=== PATIENT | male | born 2005 | race African-American/Black ===

== ENCOUNTER 2025-06-17 11:25 | Inpatient (IN) | payer MEDICAID ==
[~2025-06-17] VITALS: Ht 170.2 cm; Wt 49.2 kg
[~2025-06-17 11:25] MED LIST: DIVA-112 PO; LITH300C3 PO; RISP4TAB94 PO
[2025-06-18] MEDS ORDERED: ZOLPIDEM TARTRATE 10 MG TABLET PO PRN (14:00)
[2025-06-18 17:54] VITALS: BP 135/84; PULSE 67; RESP 18; TEMP 99; O2SAT 99
[2025-06-18 22:38] VITALS: BP 138/82; PULSE 69; RESP 18; TEMP 98.8; O2SAT 98
[2025-06-19 08:54] VITALS: BP 140/83; PULSE 94; RESP 18; TEMP 97.5; O2SAT 99
[2025-06-19 12:05] LABS: CHOL/HDL RATIO 3.5 (4.2-7.3); LDL CHOL (CALC.) 108.0 mg/dL (0-130)
[2025-06-20] MEDS: LORazepam 2 MG/ML VIAL IM ONE (01:20)
[2025-06-20] MEDS: OLANZapine 5 MG RAPDIS TABLET PO PRN (16:49)
[2025-06-20 21:30] VITALS: BP 139/92; PULSE 106; RESP 18; TEMP 98.7; O2SAT 97
[2025-06-20 23:08] VITALS: BP 132/88; PULSE 100; RESP 18; O2SAT 100
[2025-06-21] MEDS: ZOLPIDEM TARTRATE 10 MG TABLET PO PRN (00:19)
[2025-06-21 08:20] VITALS: BP 128/101; PULSE 69; RESP 18; TEMP 98.1; O2SAT 100
[2025-06-21] MEDS ORDERED: GuaiFENesin/D-METHORPHAN [SUGAR-FREE] 200-20MG/10 ML SYRUP UDCUP PO PRN (21:15)
[2025-06-21] MEDS ORDERED: PROMETHAZINE HCL 25 MG TABLET PO PRN (21:15)
[2025-06-21] MEDS ORDERED: MELATONIN 5 MG TABLET PO PRN (21:15)
[2025-06-21] MEDS ORDERED: MAGNESIUM HYDROXIDE SUSPENSION 30 ML UDCUP PO PRN (21:15)
[2025-06-21] MEDS ORDERED: TUBERCULIN, PURIFIED PROTEIN DERIVATIVE 5 TU/0.1 ML SYRINGE ID ONE (21:15)
[2025-06-21] MEDS ORDERED: MAG HYDROX/ALUMINUM HYD/SIMETH ES 30 ML SUSPENSION UDCUP PO PRN (21:15)
[2025-06-21] MEDS ORDERED: LOPERAMIDE HCL 2 MG CAPSULE PO PRN (21:15)
[2025-06-21] MEDS ORDERED: ACETAMINOPHEN 325 MG TABLET PO PRN (21:15)
[2025-06-21] MEDS: OLANZapine 5 MG RAPDIS TABLET PO ONE (21:40)
[2025-06-21 22:42] VITALS: BP 142/103; PULSE 98; RESP 18; TEMP 98.4; O2SAT 97
[2025-06-22] MEDS: OLANZapine 5 MG RAPDIS TABLET PO PRN (04:02)
[2025-06-22 06:30] LABS: PLATELET COUNT (AUTO) 217 K/uL (150-450); RED BLOOD CELL COUNT(AUTO) 5.15 MIL/uL (4.50-5.90); RED CELL DISTRIBUTION WIDTH 12.9 % (11.5-14.5); WHITE BLOOD COUNT (AUTO) 6.0 K/uL (4.5-11.0)
[2025-06-22 07:26] LABS: ASPARTATE AMINOTRANSFERASE 36 U/L (15-37); CALCIUM, TOTAL 9.0 mg/dL (8.8-10.5); CREATININE 0.77 mg/dL (0.60-1.30); GLOMERULAR FILTR. RATE CALC > 60 mL/min (>60); GLUCOSE,RANDOM 89 mg/dL (70-110); SODIUM SERUM 136 mmol/L (136-145); TOTAL PROTEIN, SERUM 7.2 g/dL (6.4-8.2); UREA NITROGEN, BLOOD 14 mg/dL (7-18)
[2025-06-22 09:59] VITALS: BP 137/81; RESP 18; O2SAT 100
[2025-06-22] MEDS: NALTREXONE HCL 50 MG TABLET PO SCH (10:14)
[2025-06-22] MEDS: THIAMINE 100 MG TABLET PO SCH (10:14)
[2025-06-22] MEDS: FOLIC ACID 1 MG TABLET PO SCH (10:14)
[2025-06-22] MEDS: MULTIVITAMINS WITH MINERALS, THERAPEUTIC TABLET PO SCH (10:14)
[2025-06-22] MEDS: PALIPERIDONE PALMITATE 234 MG/1.5 ML SYRINGE IM ONE (10:16)
[2025-06-22] MEDS: DIVALPROEX SODIUM 500 MG ER TABLET PO SCH (16:08)
[2025-06-22 20:05] VITALS: BP 112/53; PULSE 100; RESP 16; TEMP 98.6; O2SAT 98
[2025-06-22] MEDS: OLANZapine 5 MG RAPDIS TABLET PO SCH (21:07)
[2025-06-23] MEDS: ZOLPIDEM TARTRATE 10 MG TABLET PO PRN (02:21)
[2025-06-23 08:24] VITALS: BP 137/80; PULSE 91; RESP 16; TEMP 98; O2SAT 99
[2025-06-23 16:11] LABS: APPEARANCE,URINE CLEAR (CLEAR); GLUCOSE, URINE (UA) NEGATIVE (NEGATIVE); LEUKOCYTE ESTERASE ,URINE NEGATIVE (NEGATIVE); NITRATE,URINE NEGATIVE (NEGATIVE); OCCULT BLOOD,URINE NEGATIVE (NEGATIVE); SPECIFIC GRAVITIY, URINE 1.008 (1.003-1.030)
[2025-06-23 16:16] LABS: PH,URINE DRUG SCREEN 7.0 (5.0-8.0)
[2025-06-23 16:18] LABS: ALCOHOL, URINE DRUG SCREEN NEGATIVE (NEGATIVE); AMPHET/METH SCREEN,URINE NEGATIVE (NEGATIVE); BARBITURATE SCREEN, URINE NEGATIVE (NEGATIVE); CANNABINOID SCREEN,URINE NEGATIVE (NEGATIVE); COCAINE SCREEN,URINE NEGATIVE (NEGATIVE); METHADONE SCREEN, URINE NEGATIVE (NEGATIVE)
[2025-06-23 20:04] VITALS: BP 133/83; PULSE 112; RESP 16; TEMP 98.4; O2SAT 98
[2025-06-24 11:36] VITALS: BP 122/78; PULSE 92; RESP 18; TEMP 98.2; O2SAT 100
[2025-06-24 20:17] VITALS: BP 114/64; PULSE 99; RESP 16; TEMP 98.1; O2SAT 100
[2025-06-24] MEDS: OLANZapine 10 MG RAPDIS TABLET PO SCH (22:22)
[2025-06-25] MEDS ORDERED: MELA5TAB40 PO (11:10)
[2025-06-25] MEDS ORDERED: DIVA-153 PO (11:10)
[2025-06-25] MEDS ORDERED: OLAN10TA26 PO (11:10)
[2025-06-25] MEDS ORDERED: NALT50TA33 PO (11:10)
[2025-06-25] MEDS ORDERED: PALI117D IM (11:10)
[2025-06-25 15:55] VITALS: BP 131/87; PULSE 115; RESP 16; TEMP 98; O2SAT 100
[2025-06-25 21:01] VITALS: BP 121/74; PULSE 100; RESP 16; TEMP 98.1; O2SAT 98
[2025-06-26] MEDS: PALIPERIDONE PALMITATE 156 MG/ML SYRINGE IM ONE (08:04)
[2025-06-26 08:38] VITALS: BP 138/81; PULSE 109; RESP 16; TEMP 97.8; O2SAT 100
== END 2025-06-26 16:52 | disposition home or self-care (01) | DRG 750 ==
LOC: UNDOADMIN 06-18 17:40 → 3EI 06-18 17:40 → 3EX 06-20 01:00 → 3EC 06-20 23:16
PROVIDERS: ADMIT Psychiatry & Neurology Psychiatry; ATTEND Psychiatry & Neurology Psychiatry
PROC: GZ56ZZZ Individual Psychotherapy, Supportive (ICD-10-PCS; 2025-06-21)
PROC: GZHZZZZ Group Psychotherapy (ICD-10-PCS; principal; 2025-06-26)
PROC: GZ51ZZZ Individual Psychotherapy, Behavioral (ICD-10-PCS; 2025-06-26)
DX: F25.0 Schizoaffective disorder, bipolar type (principal); F41.9 Anxiety disorder, unspecified; T43.595A Adverse effect of other antipsychotics and neuroleptics, initial encounter; Z60.8 Other problems related to social environment; Z55.9 Problems related to education and literacy, unspecified; Z56.0 Unemployment, unspecified; Z59.9 Problem related to housing and economic circumstances, unspecified; Z63.9 Problem related to primary support group, unspecified; Z65.3 Problems related to other legal circumstances; Y92.89 Other specified places as the place of occurrence of the external cause
CPT/HCPCS: 74019; 80053; 80061; 80164; 80307; 81003; 82140; 83036; 84439; 84443; 85025; 86592; J1200; J1630; J2060

== ENCOUNTER 2025-06-26 22:31 | Inpatient (IN) | payer MEDICAID ==
[~2025-06-26] VITALS: Ht 170.2 cm; Wt 50.8 kg
[2025-06-26 10:33] VITALS: BP 133/93; PULSE 110; RESP 17; TEMP 98.6; O2SAT 100
[~2025-06-26 22:31] MED LIST changes: +DIVA-153 PO; +MELA5TAB40 PO; +NALT50TA33 PO; +OLAN10TA26 PO; +PALI117D IM
[2025-06-27] MEDS ORDERED: MELATONIN 5 MG TABLET PO PRN (00:30)
[2025-06-27 10:33] VITALS: BP 129/88; PULSE 112; RESP 17; TEMP 98.6; O2SAT 100
[2025-06-27] MEDS: NALTREXONE HCL 50 MG TABLET PO SCH (10:52)
[2025-06-27] MEDS: DIVALPROEX SODIUM 500 MG ER TABLET PO SCH (10:52)
[2025-06-27 20:04] VITALS: BP 122/80; PULSE 116; RESP 18; TEMP 97.8; O2SAT 100
[2025-06-27] MEDS: ZOLPIDEM TARTRATE 10 MG TABLET PO PRN (20:38)
[2025-06-27] MEDS: OLANZapine 10 MG RAPDIS TABLET PO SCH (20:38)
[2025-06-28 08:25] VITALS: BP 128/86; RESP 16; TEMP 97; O2SAT 100
[2025-06-28 09:17] LABS: PLATELET COUNT (AUTO) 236 K/uL (150-450); RED BLOOD CELL COUNT(AUTO) 4.80 MIL/uL (4.50-5.90); RED CELL DISTRIBUTION WIDTH 13.2 % (11.5-14.5); WHITE BLOOD COUNT (AUTO) 5.2 K/uL (4.5-11.0)
[2025-06-28 09:43] LABS: ASPARTATE AMINOTRANSFERASE 12 U/L (15-37); CALCIUM, TOTAL 8.6 mg/dL (8.8-10.5); CHOL/HDL RATIO 3.7 (4.2-7.3); CREATININE 0.90 mg/dL (0.60-1.30); GLOMERULAR FILTR. RATE CALC > 60 mL/min (>60); GLUCOSE,RANDOM 74 mg/dL (70-110); LDL CHOL (CALC.) 83 mg/dL (0-130); SODIUM SERUM 140 mmol/L (136-145); TOTAL PROTEIN, SERUM 6.4 g/dL (6.4-8.2); UREA NITROGEN, BLOOD 17 mg/dL (7-18)
[2025-06-28 10:05] VITALS: PULSE 98
[2025-06-28 12:33] VITALS: BP 123/88; PULSE 117; RESP 18; TEMP 98.3; O2SAT 98
[2025-06-28 20:04] VITALS: BP 117/93; PULSE 82; RESP 19; TEMP 97.5; O2SAT 95
[2025-06-29 08:11] VITALS: BP 133/79; PULSE 105; RESP 16; TEMP 97.9; O2SAT 99
[2025-06-29] MEDS ORDERED: PROMETHAZINE HCL 25 MG TABLET PO PRN (10:00)
[2025-06-29] MEDS ORDERED: MAGNESIUM HYDROXIDE SUSPENSION 30 ML UDCUP PO PRN (10:00)
[2025-06-29] MEDS ORDERED: MAG HYDROX/ALUMINUM HYD/SIMETH ES 30 ML SUSPENSION UDCUP PO PRN (10:00)
[2025-06-29] MEDS ORDERED: GuaiFENesin/D-METHORPHAN [SUGAR-FREE] 200-20MG/10 ML SYRUP UDCUP PO PRN (10:00)
[2025-06-29] MEDS ORDERED: ACETAMINOPHEN 325 MG TABLET PO PRN (10:00)
[2025-06-29] MEDS ORDERED: LOPERAMIDE HCL 2 MG CAPSULE PO PRN (10:00)
[2025-06-29] MEDS: BENZTROPINE MESYLATE 0.5 MG TABLET PO SCH (13:09)
[2025-06-29] MEDS: THIAMINE 100 MG TABLET PO SCH (16:32)
[2025-06-29] MEDS ORDERED: BENZ0.5T52 PO (17:12)
[2025-06-29] MEDS ORDERED: HALO10TA21 PO (17:12)
[2025-06-29 20:05] VITALS: BP 134/111; PULSE 89; RESP 18; TEMP 97.7; O2SAT 97
[2025-06-30 08:08] VITALS: BP 123/87; PULSE 92; RESP 17; TEMP 98.2; O2SAT 96
[2025-06-30] MEDS: FOLIC ACID 1 MG TABLET PO SCH (08:20)
[2025-06-30] MEDS: MULTIVITAMINS WITH MINERALS, THERAPEUTIC TABLET PO SCH (08:20)
[2025-06-30] MEDS: NALTREXONE HCL 50 MG TABLET PO SCH (08:21)
[2025-06-30 08:59] LABS: PH,URINE DRUG SCREEN 6.5 (5.0-8.0)
[2025-06-30 09:09] LABS: ALCOHOL, URINE DRUG SCREEN NEGATIVE (NEGATIVE); AMPHET/METH SCREEN,URINE NEGATIVE (NEGATIVE); BARBITURATE SCREEN, URINE NEGATIVE (NEGATIVE); CANNABINOID SCREEN,URINE NEGATIVE (NEGATIVE); COCAINE SCREEN,URINE NEGATIVE (NEGATIVE); METHADONE SCREEN, URINE NEGATIVE (NEGATIVE)
== END 2025-06-30 16:00 | disposition home or self-care (01) | DRG 750 ==
LOC: B2S 06-27 09:06
PROVIDERS: ADMIT Psychiatry & Neurology Psychiatry; ATTEND Psychiatry & Neurology Psychiatry
PROC: GZHZZZZ Group Psychotherapy (ICD-10-PCS; principal; 2025-06-28)
PROC: GZ56ZZZ Individual Psychotherapy, Supportive (ICD-10-PCS; 2025-06-28)
DX: F25.0 Schizoaffective disorder, bipolar type (principal); Z55.9 Problems related to education and literacy, unspecified; Z59.9 Problem related to housing and economic circumstances, unspecified; Z56.0 Unemployment, unspecified; Z63.9 Problem related to primary support group, unspecified; Z65.3 Problems related to other legal circumstances
CPT/HCPCS: 80053; 80061; 80164; 80307; 83036; 84436; 84443; 85025; 87081

== ENCOUNTER 2025-06-27 01:08 | Emergency (ER) | payer MEDICAID ==
[~2025-06-27] VITALS: Ht 167.6 cm; Wt 63.6 kg
[2025-06-27 01:24] VITALS: TEMP 98.1
[2025-06-27 01:40] LABS: PLATELET COUNT (AUTO) 242 K/uL (150-450); RED BLOOD CELL COUNT(AUTO) 4.82 MIL/uL (4.50-5.90); RED CELL DISTRIBUTION WIDTH 13.4 % (11.5-14.5); WHITE BLOOD COUNT (AUTO) 7.6 K/uL (4.5-11.0)
[2025-06-27 01:48] LABS: CALCIUM, TOTAL 9.5 mg/dL (8.8-10.5); CREATININE 0.83 mg/dL (0.60-1.30); GLOMERULAR FILTR. RATE CALC > 60 mL/min (>60); GLUCOSE,RANDOM 81 mg/dL (70-110); SODIUM SERUM 139 mmol/L (136-145); UREA NITROGEN, BLOOD 10 mg/dL (7-18)
[2025-06-27 02:33] LABS: COVID AG,FIA SOURCE NASAL SWAB
[2025-06-27 02:50] LABS: SARS-COV2 (COVID) ANTIGEN,FIA Negative (Negative)
[2025-06-27 08:06] LABS: APPEARANCE,URINE CLEAR (CLEAR); GLUCOSE, URINE (UA) NEGATIVE (NEGATIVE); LEUKOCYTE ESTERASE ,URINE NEGATIVE (NEGATIVE); NITRATE,URINE NEGATIVE (NEGATIVE); OCCULT BLOOD,URINE NEGATIVE (NEGATIVE); PH,URINE DRUG SCREEN 6.5 (5.0-8.0); SPECIFIC GRAVITIY, URINE 1.013 (1.003-1.030)
[2025-06-27 08:12] LABS: ALCOHOL, URINE DRUG SCREEN NEGATIVE (NEGATIVE); AMPHET/METH SCREEN,URINE NEGATIVE (NEGATIVE); BARBITURATE SCREEN, URINE NEGATIVE (NEGATIVE); CANNABINOID SCREEN,URINE NEGATIVE (NEGATIVE); COCAINE SCREEN,URINE NEGATIVE (NEGATIVE); METHADONE SCREEN, URINE NEGATIVE (NEGATIVE)
[2025-06-27 09:37] VITALS: BP 129/88; PULSE 105; RESP 16; O2SAT 98
== END 2025-06-27 09:50 | disposition admitted as inpatient to this hospital (09) ==
LOC: EMS 01:09 → MERGE 01:09 → EMS 09:50
DX: F20.9 Schizophrenia, unspecified (principal); F31.9 Bipolar disorder, unspecified; Z79.899 Other long term (current) drug therapy; Z20.822 Contact with and (suspected) exposure to COVID-19
CPT/HCPCS: 99285; 87426; 80048; 80178; 85025; 36415; 80307; 81003; G0480